=== PATIENT | female | born 1960 | race Caucasian/White ===

== ENCOUNTER 2016-12-08 07:42 | Emergency (ER) | payer OTHER, BC ==
[~2016-12-08] VITALS: Ht 165.1 cm; Wt 68.6 kg
[2016-12-08 07:48] VITALS: TEMP 36.8; O2SAT 98; Ht 165.1 cm; Wt 68.6 kg
[2016-12-08] MEDS ORDERED: NITROGLYCERIN 0.4 MG SL PER TAB CHARGE SL STA (08:23)
[2016-12-08] MEDS ORDERED: LEVO25TA PO (08:28)
[2016-12-08 08:38] LABS: BASO % 0.4 %; BASO ABS # 0.04 K/uL (0-0.2); COMPLETE YES; HEMATOCRIT 42.6 % (37-47); IG% 0.2 %; LYMPH % 28.7 %; MEAN CELL VOLUME 89.9 fL (80-100); MEAN CORPUSCULAR HGB CONC 34.5 g/dl (32-36); MEAN PLATELET VOLUME 9.8 fL (7.4-10.4); MONO % 7.1 %; NEUT % 62.6 %; PLATELET COUNT 256 K/uL (130-400); RED BLOOD COUNT 4.74 M/uL (4.2-5.4); WHITE BLOOD COUNT 9.77 K/uL (4.8-10.8)
[2016-12-08 08:44] LABS: INR 0.9 (0.9-1.1); PROTHROMBIN TIME (PATIENT) 9.9 SECONDS (9.0-12.0)
[2016-12-08 08:46] LABS: BUN/CREATININE RATIO 9.3 (10-20); CALCIUM 8.7 mg/dl (8.5-10.1); CREATININE 1.1 mg/dl (0.60-1.20); POTASSIUM 4.4 mmol/L (3.5-5.1)
[2016-12-08 08:51] LABS: CKMB/CK RATIO 1.2 (0-3.0)
[2016-12-08 08:56] LABS: POINT OF CARE PRO-BNP 98 pg/ml (0-900); POINT OF CARE TROPONIN I < 0.030 ng/ml (0-0.045)
--- NOTE | 2016-12-08 09:09 | DIAGNOSTIC IMAGING REPORT ---
CHEST 2 VIEWS ROUTINE CLINICAL HISTORY: 56 years-old Female presenting with chest pain. TECHNIQUE: PA and lateral views of the chest were obtained. COMPARISON: None. FINDINGS: Overlying external leads project over the right hemithorax. Cardiomediastinal silhouette normal. Mildly prominent lung markings without focal infiltrate. No pleural effusion or pneumothorax. Osseous structures normal. Cholecystectomy clips noted. IMPRESSION: 1. No acute cardiopulmonary disease. Electronically signed by: Anthony Ray M.D. 12/08/2016 9:08 AM Dictated Date/Time: 12/08/2016 9:06 AM
--- NOTE | 2016-12-08 10:23 | DIAGNOSTIC IMAGING REPORT ---
(PANCREAS) ABDOMEN LTD CLINICAL HISTORY: 56 years-old Female presenting with chest pain/elevated lipase. TECHNIQUE: Real-time grayscale and limited color Doppler ultrasound imaging of the abdomen limited to the right upper quadrant was performed. COMPARISON: None. FINDINGS: Pancreas: Visualized portions of the pancreatic head and body normal. Liver: Normal echogenicity and echotexture. The liver measures 15 cm in maximal sagittal dimension. Main portal vein patent with normal directional flow. 1.5 cm anechoic lesion noted in the right hepatic lobe, likely hepatic cyst or hamartoma. Biliary: No intrahepatic biliary ductal dilatation. Common bile duct measures up to 7 mm in diameter, likely due to reservoir effect in the post cholecystectomy state. Gallbladder: Surgically absent. Right kidney: Normal in appearance and size, measuring 10.6 cm. No hydronephrosis. Ascites: None. IMPRESSION: No sonographic evidence of choledocholithiasis or significant biliary ductal dilatation. No peripancreatic fluid collection. Electronically signed by: Anthony Ray M.D. 12/08/2016 10:22 AM Dictated Date/Time: 12/08/2016 10:19 AM
[2016-12-08] MEDS ORDERED: ONDA4TAB10 SL (10:58)
--- NOTE | 2016-12-08 10:59 | EMERGENCY ROOM VISIT NOTE ---
History First contact with patient: 08:02 Chief Complaint: CHEST PAIN Stated Complaint: CHEST PAIN Nursing Triage Summary: Patient arrived by ambulance ALS reports she was driving to work and developed mid sternal chest pain denies radiation. Patient states she has been having intermittent chest pain x 2 days states this morning while driving she developed the sharp pain in her chest and also became diaphoretic. Patient then stopped at a convenience store and took 2 full strength aspirin. Patient denies cardiac history also denies shortness of breath. On arrival patient denies pain. History of Present Illness The patient is a 56 year old female who presents to the Emergency Room ALS with complaints of chest pain. The patient states that since yesterday morning she has been getting bouts of left-sided sharp chest pain which comes and goes. The patient denies any pain radiating down his arm. The patient states that she did not have any associated symptoms until today. She states that she was driving and felt the chest pain and then felt nauseated and was sweating. She stopped at a [employer] and told them she thought she might be having a heart attack and they called 911. The patient currently just started with a pain again and rates it at a 6 out of 10. The patient denies any history of hypertension or hyperlipidemia. The patient is a smoker. The patient denies any recent leg pain or any recent travel or surgeries. The patient states that she was given Zofran in route to the ER for the nausea. The patient currently is not complaining of any nausea. The patient does admit to having her gallbladder removed. The patient denies any excessive alcohol use but states she has a few glasses of wine on the weekend. The patient does admit to a history of pancreatitis when she had her gallbladder removed. The patient denies any abdominal pain. She denies any vomiting or change in bowel habits. Review of Systems 10 system review was performed and was negative unless stated otherwise history of present illness. Social History Smoking Status: Current Every Day Smoker Current/Historical Medications Scheduled Levothyroxine Sodium (Synthroid), 1 TAB PO DAILY Physical Exam Vital Signs Date Time Temp Pulse Resp B/P (MAP) Pulse Ox O2 Delivery O2 Flow Rate FiO2 12/08/16 09:20 61 12/08/16 08:56 78 20 115/55 97 Room Air 12/08/16 07:48 98 Room Air 12/08/16 07:48 98 Room Air 12/08/16 07:48 36.8 70 16 123/83 98 Room Air Physical Exam GENERAL: 56-year-old white female appears in no acute distress. MENTAL Status: Alert and oriented 3. MOUTH: Mucosa is moist NECK: Supple, no lymphadenopathy noted. No carotid bruits noted. LUNGS: Clear auscultation without wheezes rales or rhonchi. CARDIAC: Regular rate and rhythm without murmur. Pulses is full and equal throughout. BACK: No CVA tenderness noted. ABDOMEN: Positive bowel sounds all 4 quadrants. Soft, nontender to palpation without organomegaly or masses. EXTREMITIES: No cyanosis or edema noted. Calves are nontender. Medical Decision & Procedures ER Provider Diagnostic Interpretation: (PANCREAS) ABDOMEN LTD CLINICAL HISTORY: 56 years-old Female presenting with chest pain/elevated lipase. TECHNIQUE: Real-time grayscale and limited color Doppler ultrasound imaging of the abdomen limited to the right upper quadrant was performed. COMPARISON: None. FINDINGS: Pancreas: Visualized portions of the pancreatic head and body normal. Liver: Normal echogenicity and echotexture. The liver measures 15 cm in maximal sagittal dimension. Main portal vein patent with normal directional flow. 1.5 cm anechoic lesion noted in the right hepatic lobe, likely hepatic cyst or hamartoma. Biliary: No intrahepatic biliary ductal dilatation. Common bile duct measures up to 7 mm in diameter, likely due to reservoir effect in the post cholecystectomy state. Gallbladder: Surgically absent. Right kidney: Normal in appearance and size, measuring 10.6 cm. No hydronephrosis. Ascites: None. IMPRESSION: No sonographic evidence of choledocholithiasis or significant biliary ductal dilatation. No peripancreatic fluid collection. Electronically signed by: Anthony Ray M.D. 12/08/2016 10:22 AM Dictated Date/Time: 12/08/2016 10:19 AM CHEST 2 VIEWS ROUTINE CLINICAL HISTORY: 56 years-old Female presenting with chest pain. TECHNIQUE: PA and lateral views of the chest were obtained. COMPARISON: None. FINDINGS: Overlying external leads project over the right hemithorax. Cardiomediastinal silhouette normal. Mildly prominent lung markings without focal infiltrate. No pleural effusion or pneumothorax. Osseous structures normal. Cholecystectomy clips noted. IMPRESSION: 1. No acute cardiopulmonary disease. Electronically signed by: Anthony Ray M.D. 12/08/2016 9:08 AM Dictated Date/Time: 12/08/2016 9:06 AM Laboratory Results 12/08/16 07:54 Red Blood Count 4.74, Mean Corpuscular Volume 89.9, Mean Corpuscular Hemoglobin 31.0, Mean Corpuscular Hemoglobin Concent 34.5, Mean Platelet Volume 9.8, Neutrophils (%) (Auto) 62.6, Lymphocytes (%) (Auto) 28.7, Monocytes (%) (Auto) 7.1, Eosinophils (%) (Auto) 1.0, Basophils (%) (Auto) 0.4, Neutrophils # (Auto) 6.12, Lymphocytes # (Auto) 2.80, Monocytes # (Auto) 0.69, Eosinophils # (Auto) 0.10, Basophils # (Auto) 0.04 12/08/16 07:54 Test 12/08/16 07:54 12/08/16 08:33 White Blood Count 9.77 K/uL (4.8-10.8) Red Blood Count 4.74 M/uL (4.2-5.4) Hemoglobin 14.7 g/dL (12.0-16.0) Hematocrit 42.6 % (37-47) Mean Corpuscular Volume 89.9 fL (80-100) Mean Corpuscular Hemoglobin 31.0 pg (25-34) Mean Corpuscular Hemoglobin Concent 34.5 g/dl (32-36) Platelet Count 256 K/uL (130-400) Mean Platelet Volume 9.8 fL (7.4-10.4) Neutrophils (%) (Auto) 62.6 % Lymphocytes (%) (Auto) 28.7 % Monocytes (%) (Auto) 7.1 % Eosinophils (%) (Auto) 1.0 % Basophils (%) (Auto) 0.4 % Neutrophils # (Auto) 6.12 K/uL (1.4-6.5) Lymphocytes # (Auto) 2.80 K/uL (1.2-3.4) Monocytes # (Auto) 0.69 K/uL (0.11-0.59) Eosinophils # (Auto) 0.10 K/uL (0-0.5) Basophils # (Auto) 0.04 K/uL (0-0.2) RDW Standard Deviation 42.8 fL (36.4-46.3) RDW Coefficient of Variation 13.0 % (11.5-14.5) Immature Granulocyte % (Auto) 0.2 % Immature Granulocyte # (Auto) 0.02 K/uL (0.00-0.02) Prothrombin Time 9.9 SECONDS (9.0-12.0) Prothromb Time International Ratio 0.9 (0.9-1.1) Activated Partial Thromboplast Time 25.3 SECONDS (21.0-31.0) Partial Thromboplastin Ratio 1.0 Anion Gap 6.0 mmol/L (3-11) Est Creatinine Clear Calc Drug Dose 56.9 ml/min Estimated GFR () 65.9 Estimated GFR (Non- 56.9 BUN/Creatinine Ratio 9.3 (10-20) Calcium Level 8.7 mg/dl (8.5-10.1) Total Bilirubin 0.4 mg/dl (0.2-1) Direct Bilirubin 0.1 mg/dl (0-0.2) Aspartate Amino Transf (AST/SGOT) 14 U/L (15-37) Alanine Aminotransferase (ALT/SGPT) 19 U/L (12-78) Alkaline Phosphatase 101 U/L (45-117) Total Creatine Kinase 103 U/L (26-192) Creatine Kinase MB 1.2 ng/ml (0.5-3.6) Creatine Kinase MB Ratio 1.2 (0-3.0) Total Protein 7.2 gm/dl (6.4-8.2) Albumin 3.8 gm/dl (3.4-5.0) Lipase 2071 U/L (73-393) Bedside D-Dimer 222 ng/mlFEU (0-450) Bedside Troponin I < 0.030 ng/ml (0-0.045) YC-Cqm-D-Type Natriuretic Peptide 98 pg/ml (0-900) Medications Administered Medications (Trade) Dose Ordered Sig/Cristiana Route Start Time Stop Time Status Last Admin Dose Admin Nitroglycerin (Nitrostat Tab) 0.4 mg NOW STAT SL 12/08/16 08:23 12/08/16 08:28 DC 12/08/16 09:25 0.4 MG ECG Indication: chest pain Rhythm: normal sinus Findings: no acute ischemic change Comparison ECG Date: no prior available ED Course The patient was evaluated. The patient's EMR medication list were reviewed. The patient was placed on a monitor and continuous pulse ox. EKG was ordered and interpreted as above without any acute findings. Chest x-ray was ordered and interpreted as above without any acute cardiopulmonary findings. IV access was obtained. CBC and differential, renal profile, LFTs and lipase levels were ordered. Coags, CK-MB, [id number]-niyi troponin and d-dimer were ordered. Labs are reviewed. All labs are unremarkable except for elevated lipase over 1999. The patient was ordered nitroglycerin for chest pain but when the nurse went to give it she did not have any pain and therefore refused. The patient did not want anything else for pain. The patient's case was discussed with Dr. Garcia who agreed with treatment plan. Ultrasound of the pancreas was ordered and interpreted by the radiologist as above without any acute findings. The patient was informed of the findings. The patient did not want anything for pain at home. The patient was discharged home in stable condition.. Medical Decision Differential diagnosis include pneumonia, pleuritic chest pain, pulmonary embolus, acute MS, acute cholecystitis, acute pancreatitis, Medication Reconcilliation Current Medication List: was not reviewed Blood Pressure Screening Patient's blood pressure: Normal blood pressure Impression Primary Impression: Pancreatitis Departure Information Dispostion Home / Self-Care Condition GOOD Prescriptions Ondasetron Odt (ZOFRAN ODT) 4 Mg Tab 4 MG SL Q6H for Nausea, #10 TAB Prov: Leida Brooks PA-C 12/08/16 Referrals No Doctor, Assigned (PCP) Kam Lares M.D. Forms HOME CARE DOCUMENTATION FORM, IMPORTANT VISIT INFORMATION Patient Instructions ED Pancreatitis, [facility], [facility] Additional Instructions Push fluids. Concentrate on drinking fluids, you do not have to eat foods for the next 24 hours. Take Zofran as needed for nausea. Follow-up with your PCP in 2 days for recheck. If you experience any severe abdominal pain, uncontrolled nausea vomiting, fevers return to ER immediately. Problem Qualifiers Primary Impression: Pancreatitis Chronicity: acute Pancreatitis type: unspecified pancreatitis type Acute pancreatitis complication: unspecified Qualified Codes: K85.90 - Acute pancreatitis without necrosis or infection, unspecified
[2016-12-08 11:02] VITALS: BP 115/52; PULSE 66; O2SAT 96
== END 2016-12-08 11:02 | disposition home or self-care (01) ==
LOC: C.EDA 07:46 → EDBD 07:46 → C.EDA 11:02
DX: K86.1 Other chronic pancreatitis (principal); F17.200 Nicotine dependence, unspecified, uncomplicated; Z79.899 Other long term (current) drug therapy